=== PATIENT | female | born 1985 | race Caucasian/White ===

== ENCOUNTER → 2018-11-16 15:44 | Outpatient (CLI) | payer OTHER, SELFPAY ==
[2018-11-16 15:53] LABS: Bacteria Urine None Seen; RBC Urine None Seen (0-5/HPF)
[2018-11-16 16:40] LABS: Add Manual Diff / Slide Review NO; Basophils Percent Auto 0.8 % (0-2); Eosinophils Percent Auto 1.8 % (2-4); Hematocrit 39.8 % (36-46); Hemoglobin 13.8 g/dL (12.0-16.0); Lymphocytes Percent Auto 33.5 % (25-40); Mean Corpuscular HGB Conc 34.6 % (30-36); Mean Corpuscular Hemoglobin 30.4 PG (26-34); Mean Corpuscular Volume 87.9 fL (80-100); Monocytes Percent Auto 7.9 % (3-14); Neutrophils Absolute Auto 3500 /uL (1500-7000); Platelet Count 288 X10^3/uL (150-400); Red Blood Cell Count 4.53 X10^6/uL (4.0-5.2); Red Cell Distribution Width 12.6 % (11.6-14.8); White Blood Cell Count 6.3 X10^3/uL (4.5-11.0)
[2018-11-16 16:50] LABS: Appearance Urine UA CLEAR; Bilirubin Urine UA NEGATIVE (NEGATIVE); Color Urine UA YELLOW; Glucose Urine UA NEGATIVE (Negative); Ketones Urine UA NEGATIVE (NEGATIVE); Leukocyte Esterase Urine UA NEGATIVE (NEGATIVE); Nitrite Urine UA NEGATIVE (Negative); Occult Blood Urine UA NEGATIVE (Negative); Protein Urine UA NEGATIVE (Negative); Urobilinogen Urine UA 0.2 E.U./dL (0.2); pH Urine UA 7.5 (4.5-8.0)
[2018-11-16 16:55] LABS: Alanine Aminotransferase 53 IU/L (9-52); Albumin 4.7 g/dL (3.5-5.0); Albumin Globulin Ratio 1.5 (1.0-2.8); Alkaline Phosphatase 49 U/L (38-126); Aspartate Aminotransferase 59 IU/L (14-36); BUN Creatinine Ratio 13.8 (6-22); Bilirubin Total 0.9 mg/dL (0.2-1.3); Blood Urea Nitrogen 11 mg/dL (7-17); Calcium 9.5 mg/dL (8.4-10.2); Carbon Dioxide 29 mmol/L (22-32); Chloride 100 mmol/L (98-107); Estimated Glomerular Filt Rate > 60.0 mL/min (>60); Globulin 3.1 g/dL (1.7-4.1); Glucose 84 mg/dL (70-100); HEMOLYSIS < 15 (0-50); Potassium 3.4 mmol/L (3.4-5.1); Sodium 141 mmol/L (137-145); Total Protein 7.8 g/dL (6.3-8.2)
[2018-11-16 17:05] LABS: Culture Indicated Urine Cult Not Indicated; Squamous Epithelial Cell Urine 0-1 /HPF; WBC Urine 0-1/HPF (0-5/HPF)
[2018-11-16 17:26] LABS: TSH w/ Reflex to FT4 1.24 uIU/mL (0.47-4.68)
== END ==
PROVIDERS: Family Provider Family Medicine; PCP Family Medicine; Visit Provider Family Medicine
DX: M32.8 Other forms of systemic lupus erythematosus (principal)
CPT/HCPCS: 36415; 80053; 81001; 84443; 85025

== ENCOUNTER → 2019-08-20 10:40 | Outpatient (CLI) | payer OTHER, SELFPAY ==
--- NOTE | 2019-08-20 | DI.MG.S_ITS ---
BILATERAL DIGITAL SCREENING MAMMOGRAM 3D/2D WITH CAD: 08/20/2019 CLINICAL: Routine screening. Family history of breast cancer. Comparison is made to exams dated: 12/29/2017 mammogram, 03/30/2013, and 09/28/2012 mammogram - [facility]. The tissue of both breasts is heterogeneously dense. This may lower the sensitivity of mammography. Current study was also evaluated with a Computer Aided Detection (CAD) system. There is an oval equal density global asymmetry with an indistinct margin in the left breast at 1 o'clock posterior depth. No other significant masses, calcifications, or other findings are seen in either breast. IMPRESSION: INCOMPLETE: NEEDS ADDITIONAL IMAGING EVALUATION The oval equal density global asymmetry in the left breast is indeterminate. Mediolateral and spot compression views as well as additional views with possible ultrasound are recommended. This exam was interpreted at Station ID: [id number]. NOTE: For mammograms, a report in lay terms will be sent to the patient. Approximately 15% of breast malignancies will not be visualized mammographically. In the management of a palpable breast mass, a negative mammogram must not discourage biopsy of a clinically suspicious lesion. Electronically Signed By: Kishan cisneros/elaine:08/23/2019 16:25:43 letter sent: Additional Imaging Needed ACR BI-RADS Category 0: Incomplete 3340F
== END ==
PROVIDERS: PCP Family Medicine; Visit Provider Family Medicine
DX: Z12.31 Encounter for screening mammogram for malignant neoplasm of breast (principal); Z80.3 Family history of malignant neoplasm of breast
CPT/HCPCS: 77063; 77067

== ENCOUNTER → 2019-09-20 10:05 | Outpatient (CLI) | payer OTHER, SELFPAY ==
--- NOTE | 2019-09-20 | DI.MG.S_ITS ---
UNILATERAL LEFT DIGITAL DIAGNOSTIC MAMMOGRAM 3D/2D WITH ADDITIONAL VIEWS: 09/20/2019 CLINICAL: Additional evaluation requested from prior study. Comparison is made to exams dated: 08/20/2019 mammogram, 12/29/2017 mammogram, and 09/28/2012 mammogram - [facility]. The tissue of left breast is heterogeneously dense. This may lower the sensitivity of mammography. Previously identified oval equal density global asymmetry with an indistinct margin (described as being in the left breast at 1 o'clock posterior depth on comparison screening mammograms of 08/20/19) persists with additional views. The asymmetry appears less prominent with spot compression LCC views but persists on true lateral L LM views. IMPRESSION: INCOMPLETE: NEEDS ADDITIONAL IMAGING EVALUATION Previously identified oval equal density global asymmetry with an indistinct margin (described as being in the left breast at 1 o'clock posterior depth on comparison screening mammograms of 08/20/19) persists with additional views. The asymmetry appears less prominent with spot compression LCC views but persists on true lateral L LM views. A targeted ultrasound is recommended for further evaluation, and will be performed immediately following this exam. This exam was interpreted at Station ID: [id number]. NOTE: For mammograms, a report in lay terms will be sent to the patient. Approximately 15% of breast malignancies will not be visualized mammographically. In the management of a palpable breast mass, a negative mammogram must not discourage biopsy of a clinically suspicious lesion. Electronically Signed By: Chris Hill M.D. ecl/:09/20/2019 10:44:11 ACR BI-RADS Category 0: Incomplete 3340F
--- NOTE | 2019-09-20 10:06 | DI.US.S_ITS ---
LIMITED ULTRASOUND OF LEFT BREAST: 09/20/2019 CLINICAL: Patient returns today to evaluate an asymmetry in the left breast. Comparison is made to exams dated: 09/20/2019 mammogram, 08/20/2019 mammogram, 12/29/2017 mammogram, 03/30/2013, and 10/15/2012 mammogram - [facility]. Color flow ultrasound of the left breast upper outer quadrant was performed. Mayes scale images of the real-time examination were reviewed. Targeted ultrasound of the upper outer left breast demonstrates dense echogenic fibroglandular tissue with prominent internal lobules of fat, located in the superior lateral left breast 1-2 o'clock psoition 4 cm from the nipple. No other underlying discrete breast mass or abnormality is identified. IMPRESSION: PROBABLY BENIGN Dense fibroglandular tissue without further ultrasound correlate for the asymmetry of the upper outer left breast seen on screening and diagnostic mammography. A follow-up mammogram and possible ultrasound in 6 months is recommended to demonstrate stability. The patient is advised to monitor her breasts and to return sooner for re-evaluation should she feel anything grow or change. This exam was interpreted at Station ID: [id number]. Electronically Signed By: Chris Hill M.D. ecl/:09/20/2019 11:07:07 letter sent: Followup Recommended Ultrasound BI-RADS: 3 Probably benign
== END ==
PROVIDERS: PCP Family Medicine; Visit Provider Family Medicine
DX: R92.8 Other abnormal and inconclusive findings on diagnostic imaging of breast (principal); N64.89 Other specified disorders of breast
CPT/HCPCS: 76642; 77065; G0279

== ENCOUNTER → 2020-07-13 09:24 | Outpatient (CLI) | payer OTHER, SELFPAY ==
--- NOTE | 2020-07-13 09:38 | DI.MG.S_ITS ---
Patient Name: KHUSHBU CUNHA date: 1985 Sex: F Attending Physician: Jerrell Indications: Date: 07/13/2020 09:32 At the request of: BRETT BRENNAN Procedure: MM diagnostic mammo BI BILATERAL DIGITAL DIAGNOSTIC MAMMOGRAM 3D/2D SHORT-TERM FOLLOW-UP: 07/13/2020 CLINICAL: Patient returns for a 6 month follow up of the left breast, due for bilateral exam. Comparison is made to exams dated: 09/20/2019 mammogram, 08/20/2019 mammogram, and 12/29/2017 mammogram - [facility]. The tissue of both breasts is heterogeneously dense. This may lower the sensitivity of mammography. There is an oval equal density global asymmetry with an indistinct margin in the left breast at 1 o'clock posterior depth. This is increased in size. No other significant masses, calcifications, or other findings are seen in either breast. IMPRESSION: INCOMPLETE: NEEDS ADDITIONAL IMAGING EVALUATION The oval equal density global asymmetry in the left breast is indeterminate. An ultrasound is recommended. This exam was interpreted at Station ID: [id number]. NOTE: For mammograms, a report in lay terms will be sent to the patient. Approximately 15% of breast malignancies will not be visualized mammographically. In the management of a palpable breast mass, a negative mammogram must not discourage biopsy of a clinically suspicious lesion. Electronically Signed By: Kishan cisneros/adalbertorad:07/13/2020 09:53:44 Continued Report - Page 2 of 2 Patient Name: KHUSHBU CUNHA date: 1985 Sex: F Attending Physician: Jerrell Indications: Date: 07/13/2020 09:32 At the request of: BRETT BRENNAN Procedure: MM diagnostic mammo BI ACR BI-RADS Category 0: Incomplete 3340F
--- NOTE | 2020-07-13 09:57 | DI.US.S_ITS ---
Patient Name: KHUSHBU CUNHA date: 1985 Sex: F Attending Physician: Jerrell Indications: Date: 07/13/2020 09:55 At the request of: BRETT BRENNAN Procedure: US breast LT limited LIMITED ULTRASOUND OF LEFT BREAST: 07/13/2020 CLINICAL: Patient returns today to evaluate asymmetry in left breast. Comparison is made to exams dated: 07/13/2020 mammogram, 09/20/2019 ultrasound, 09/20/2019 mammogram, and 08/20/2019 mammogram - [facility]. Real-time ultrasound of the left breast upper outer quadrant was performed on the area of interest. No discrete cystic or solid mass lesion identified in the area of the enlarging global asymmetry on mammography. IMPRESSION: INCOMPLETE: NEEDS ADDITIONAL IMAGING EVALUATION There is no abnormality seen in the left breast to correspond with the mammography finding in the upper outer quadrant, however, breast MRI is recommended given the change compared to prior studies and patient's strong family history. The findings were reviewed with the patient at the conclusion of the study by the laboratory technologist. This exam was interpreted at Station ID: [id number]. Electronically Signed By: Kishan Edward M.D. ddp/:07/13/2020 10:07:44 letter sent: Need MRI Ultrasound BI-RADS: 0 Indeterminate
[2020-07-13 11:38] LABS: Add Manual Diff / Slide Review NO; Basophils Absolute Auto 0 /uL (0-100); Basophils Percent Auto 0.8 % (0-2); Eosinophils Absolute Auto 100 /uL (0-450); Eosinophils Percent Auto 1.4 % (2-4); Hematocrit 39.3 % (36-46); Hemoglobin 13.4 g/dL (12.0-16.0); Lymphocytes Absolute Auto 2100 /uL (1100-4500); Mean Corpuscular HGB Conc 34.1 % (30-36); Mean Corpuscular Hemoglobin 30.6 PG (26-34); Mean Corpuscular Volume 89.5 fL (80-100); Monocytes Absolute Auto 500 /uL (0-900); Monocytes Percent Auto 9.3 % (3-14); Neutrophils Absolute Auto 2800 /uL (1500-7000); Neutrophils Percent Auto 50.5 % (50-75); Platelet Count 237 X10^3/uL (150-400); Red Blood Cell Count 4.39 X10^6/uL (4.0-5.2); Red Cell Distribution Width 12.3 % (11.6-14.8); White Blood Cell Count 5.6 X10^3/uL (4.5-11.0)
[2020-07-13 12:12] LABS: Alanine Aminotransferase 24 IU/L (<35); Albumin 4.8 g/dL (3.5-5.0); Albumin Globulin Ratio 1.7 (1.0-2.8); Alkaline Phosphatase 64 U/L (38-126); Aspartate Aminotransferase 27 IU/L (14-36); BUN Creatinine Ratio 8.2 (6-22); Bilirubin Total 1.2 mg/dL (0.2-1.3); Blood Urea Nitrogen 8 mg/dL (7-17); Calcium 9.6 mg/dL (8.4-10.2); Carbon Dioxide 26 mmol/L (22-32); Chloride 103 mmol/L (98-107); Cholesterol 154 mg/dL (140-199); Estimated Glomerular Filt Rate > 60.0 mL/min (>60); Globulin 2.8 g/dL (1.7-4.1); Glucose 79 mg/dL (70-100); HDL Cholesterol 69 mg/dL (40-60); HEMOLYSIS < 15 (0-50); LDL Cholesterol Calculated 72 mg/dL (<100); Potassium 3.8 mmol/L (3.4-5.1); Sodium 138 mmol/L (137-145); Total Protein 7.6 g/dL (6.3-8.2); Triglycerides 63 mg/dL (35-150)
[2020-07-13 12:26] LABS: TSH w/ Reflex to FT4 0.92 uIU/mL (0.47-4.68)
== END ==
PROVIDERS: PCP Family Medicine; Referring Provider Family Medicine; Visit Provider Family Medicine
DX: R92.8 Other abnormal and inconclusive findings on diagnostic imaging of breast (principal); M32.8 Other forms of systemic lupus erythematosus; N64.89 Other specified disorders of breast; Z80.3 Family history of malignant neoplasm of breast
CPT/HCPCS: 36415; 76642; 77066; 80053; 80061; 84443; 85025; G0279

== ENCOUNTER → 2020-08-01 12:56 | Outpatient (CLI) | payer OTHER, SELFPAY ==
--- NOTE | 2020-08-01 12:57 | DI.MRI.S_ITS ---
BREAST MRI OF BOTH BREASTS: 08/01/2020 CLINICAL: Abnormal Mammogram. TECHNIQUE: The patient was placed prone in a dedicated breast imaging coil. Precontrast axial STIR and 3D FLASH without fat saturation sequences were obtained. Both before and after bolus injection of contrast, sequential 1-minute axial 3D FLASH with fat saturation sequences for 3 time points, with subtraction images and maximum intensity projections (MIP's) generated. Delayed sagittal FLASH images with fat saturation were also obtained. Computer-aided detection, including computer algorithm analysis of MRI image data for lesion detection and characterization, pharmacokinetic analysis, with further physician review for interpretation, was performed. COMPARISON: [facility], US, BREAST UNILATERAL LIMITED, 12/29/2017, 13:32. [facility], BILATERAL DIAGNOSTIC MAMMOGRAM, 12/29/2017, 13:09. [facility], MM SCREENING MAMMO BI, 08/20/2019, 11:10. [facility], MM SPECIAL VIEW LT, 09/20/2019, 10:20. [facility], MM DIAGNOSTIC MAMMO BI, 07/13/2020, 9:38. [facility], US BREAST LT LIMITED, 07/13/2020, 9:57. [facility], US BREAST LT LIMITED, 09/20/2019, 10:45. [facility], , BILATERAL BREAST W FINDINGS: Image quality: Excellent. There is mild background parenchymal enhancement. There is heterogeneous fibroglandular breast tissue in the bilateral breast. Right breast: There is no mass, non-mass enhancement, or architectural distortion identified in the right breast. No skin or nipple abnormalities. Left breast: There is no mass, non-mass enhancement, or architecture distortion identified in the left breast. No skin or nipple abnormalities. There is redemonstration of global asymmetry of fibroglandular tissue in the posterior depth of the upper-outer left breast correlating with area of prior mammographic and sonographic evaluation. No associated architectural distortion or suspicious enhancement. Miscellaneous: No axillary or internal mammary chain adenopathy identified on either side. Visualized portions of the chest and upper abdomen are unremarkable. IMPRESSION: NEGATIVE No MRI evidence for malignancy in either breast. Specifically, no suspicious abnormalities identified in the posterior depth of the upper-outer quadrant of the left breast correlating with previously evaluated global asymmetry. This likely represents asymmetric distribution of dense fibroglandular breast tissue. Recommend continued annual screening mammograms with consideration of annual screening breast MRI to be offset by approximately 6 months. COMMENT: The imaging literature indicates that a negative contrast breast MRI examination has a high sensitivity and a moderate specificity for detecting and excluding invasive carcinomas to a detection threshold of 3-5 mm; nonetheless, appropriate clinical and mammographic follow-up are recommended. MRI is not sensitive for detecting DCIS (ductal carcinoma in situ) and may not detect large invasive neoplasms that show only minimal enhancement such as mucinous carcinoma. If there are suspicious calcifications or clinically worrisome palpable masses, then biopsy should still be considered. Invasive neoplasms can be hidden by co-existent and benign enhancement caused by mastitis, hormone therapy effects, radiation therapy, , and recent biopsy or surgery. False positive examinations can occur in a number of circumstances, including breasts that have recently been subject to invasive procedures and those that contain atypical ductal hyperplasia, hormonally stimulated glandular tissue, fat necrosis, or radial scars. A 1 year screening mammogram and a breast MRI is recommended. This exam was interpreted at Station ID: [id number]. Electronically Signed By: Gus Cho M.D. at/:08/01/2020 17:32:05 letter sent: Normal Exam ACR BI-RADS Category 1: Negative 3341F
== END ==
PROVIDERS: PCP Family Medicine; Referring Provider Family Medicine; Visit Provider Family Medicine
DX: R92.8 Other abnormal and inconclusive findings on diagnostic imaging of breast (principal); R92.2 Inconclusive mammogram; N64.89 Other specified disorders of breast; Z80.3 Family history of malignant neoplasm of breast
CPT/HCPCS: 77049; A9579

== ENCOUNTER 2021-03-29 17:34 | Emergency (ER) | payer OTHER, SELFPAY ==
[2021-03-29 17:38] VITALS: BP 151/78; PULSE 75; RESP 16; TEMP 36.6; O2SAT 100; BMI 21.5
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
[2021-03-29] MEDS: BUPIVACAINE 0.5% W/ EPI (PF) 30 ML VIAL 5 ML SUBCUT (19:03)
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
[2021-03-29 20:01] VITALS: BP 140/79; PULSE 69; RESP 18; O2SAT 100
--- NOTE | 2021-03-29 20:22 | PC.NURSE ---
abx prescription did not go through to [facility]. pharmacist called and was given verbal report.
== END 2021-03-29 20:01 | disposition home or self-care (01) ==
PROVIDERS: Emergency Provider Emergency Medicine; PCP Family Medicine
DX: S02.5XXB Fracture of tooth (traumatic), initial encounter for open fracture (principal); W19.XXXA Unspecified fall, initial encounter
CPT/HCPCS: 64450; 70486; 99283; 99284

== ENCOUNTER → 2022-02-25 09:29 | Outpatient (CLI) | payer OTHER, SELFPAY ==
[2022-02-25 11:01] LABS: Add Manual Diff / Slide Review NO; Basophils Absolute Auto 100 /uL (0-100); Eosinophils Absolute Auto 100 /uL (0-450); Eosinophils Percent Auto 1.6 % (2-4); Hematocrit 38.9 % (36-46); Hemoglobin 13.5 g/dL (12.0-16.0); Lymphocytes Absolute Auto 1900 /uL (1100-4500); Lymphocytes Percent Auto 30.3 % (25-40); Mean Corpuscular HGB Conc 34.7 % (30-36); Mean Corpuscular Hemoglobin 31.3 PG (26-34); Mean Corpuscular Volume 90.2 fL (80-100); Monocytes Absolute Auto 400 /uL (0-900); Monocytes Percent Auto 7.1 % (3-14); Neutrophils Absolute Auto 3700 /uL (1500-7000); Platelet Count 229 X10^3/uL (150-400); Red Blood Cell Count 4.32 X10^6/uL (4.0-5.2); Red Cell Distribution Width 12.8 % (11.6-14.8); White Blood Cell Count 6.1 X10^3/uL (4.5-11.0)
[2022-02-25 12:18] LABS: Alanine Aminotransferase 21 IU/L (<35); Albumin 4.8 g/dL (3.5-5.0); Albumin Globulin Ratio 1.8 (1.0-2.8); Alkaline Phosphatase 53 U/L (38-126); Aspartate Aminotransferase 39 IU/L (14-36); BUN Creatinine Ratio 8.3 (6-22); Bilirubin Total 1.2 mg/dL (0.2-1.3); Blood Urea Nitrogen 7 mg/dL (7-17); Calcium 9.2 mg/dL (8.4-10.2); Carbon Dioxide 27 mmol/L (22-32); Chloride 103 mmol/L (98-107); Estimated Glomerular Filt Rate > 60 mL/min (>60); Globulin 2.6 g/dL (1.7-4.1); Glucose 80 mg/dL (70-100); HEMOLYSIS < 15 (0-50); Potassium 3.6 mmol/L (3.4-5.1); Sodium 140 mmol/L (137-145); Total Protein 7.4 g/dL (6.3-8.2)
[2022-02-25 12:49] LABS: Thyroid Stimulating Hormone 0.686 uIU/mL (0.47-4.68)
== END ==
PROVIDERS: PCP Family Medicine; Referring Provider Physician Assistant; Visit Provider Physician Assistant
DX: M32.8 Other forms of systemic lupus erythematosus (principal); Z79.899 Other long term (current) drug therapy; R23.2 Flushing
CPT/HCPCS: 36415; 80053; 84443; 85025

== ENCOUNTER → 2022-03-06 09:14 | Outpatient (CLI) | payer OTHER, SELFPAY ==
--- NOTE | 2022-03-06 | DI.MG.S_ITS ---
BILATERAL DIGITAL SCREENING MAMMOGRAM 3D/2D WITH CAD: 03/06/2022 CLINICAL: Routine screening. Family history of breast cancer. Comparison is made to exams dated: 08/01/2020 breast MRI, 07/13/2020 ultrasound, 07/13/2020 mammogram, 08/20/2019 mammogram, and 12/29/2017 mammogram - [facility]. The tissue of both breasts is heterogeneously dense. This may lower the sensitivity of mammography. Current study was also evaluated with a Computer Aided Detection (CAD) system. No significant masses, calcifications, or other findings are seen in either breast. There has been no significant interval change. IMPRESSION: NEGATIVE There is no mammographic evidence of malignancy. A 1 year screening mammogram is recommended. This exam was interpreted at Station ID: [id number]. NOTE: For mammograms, a report in lay terms will be sent to the patient. Approximately 15% of breast malignancies will not be visualized mammographically. In the management of a palpable breast mass, a negative mammogram must not discourage biopsy of a clinically suspicious lesion. Electronically Signed By: Gus kong/elaine:03/06/2022 09:35:53 letter sent: Normal Exam ACR BI-RADS Category 1: Negative 3341F
== END ==
PROVIDERS: PCP Family Medicine; Referring Provider Family Medicine; Visit Provider Family Medicine
DX: Z12.31 Encounter for screening mammogram for malignant neoplasm of breast (principal); Z80.3 Family history of malignant neoplasm of breast
CPT/HCPCS: 77063; 77067

== ENCOUNTER 2023-01-07 12:19 | Emergency (ER) | payer OTHER, SELFPAY ==
[2023-01-07 12:36] VITALS: BP 139/65; PULSE 68; RESP 16; TEMP 37; O2SAT 100; BMI 22.9
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
--- NOTE | 2023-01-07 13:32 | ED.UPPEXIN ---
HPI - Extremity Injury (Upper) General Chief Complaint: Extremity Injury, Upper Stated Complaint: cut lt hand with knife Time Seen by Provider: 01/07/23 13:19 Source: patient Mode of arrival: Ambulatory History of Present Illness HPI narrative: This is a 37-year-old female presents emergency department due to puncture in her left hand after attempting to slicer avocado. Unsure of tetanus is up-to-date. She states she tried to stab the avocado but accidently stabbed left hand at the palm of her just proximal to the MCP joint. She reports mild pain but is primarily concerned with the fact that she is unable to flex her left 2nd digit. Related Data Home Medications Medication Instructions Recorded Confirmed ascorbate calcium (vitamin C) 500 500 mg PO DAILY 11/16/18 02/25/22 mg tablet biotin 2,500 mcg capsule 2,500 mcg PO DAILY 11/16/18 02/25/22 Previous Rx's Medication Instructions Recorded hydroxychloroquine 200 mg tablet 200 mg PO DAILY #90 tabs 02/25/22 Allergies Allergy/AdvReac Type Severity Reaction Status Date / Time No Known Drug Allergies Allergy Verified 01/07/23 12:34 Review of Systems Review of Systems Narrative: GENERAL: Denies chills, fatigue, malaise, fever, sweats. HEENT: Denies sinus pain, ear pain, sore throat, difficulty swallowing, dizziness. RESPIRATORY: Denies dyspnea, cough, wheezing, hemoptysis, sputum. CARDIOVASCULAR: Denies chest pain, palpitations, orthopnea, edema, GASTROINTESTINAL: Denies nausea, vomiting, abdominal pain, diarrhea, constipation, melena. : Denies dysuria, frequency, incontinence, hematuria, urinary retention. MUSCULOSKELETAL: Left hand pain SKIN: Left palm laceration NEUROLOGIC: Denies weakness, headache, numbness, change in speech, confusion, seizures, incoordination. PSYCHIATRIC: No concerning psychosocial issues. 12 point review of systems is negative except for those stated above Patient History Social History marital status: Smoking Status: Never smoker alcohol intake: current (ON OCCASION ) substance use type: does not use Smoking Status: Never smoker Substance Use Type: does not use Exam Narrative Exam Narrative: GENERAL: Well-developed patient, in mild distress. HEAD: Atraumatic. Normocephalic. EYES: Pupils equal round and reactive. Extraocular motions intact. No scleral icterus. No injection or drainage. ENT: Nose without bleeding, purulent drainage. Throat without erythema, tonsillar hypertrophy or exudate. Airway patent. NECK: Trachea midline. Non tender EXTREMITIES: Able flex at the MCP joint but unable to flex at the, PIP, or dip joint of the left 2nd digit. Intact sensation and vascularly intact distally to the wound. Full ability to extend at all joints of the left 2nd digit. No other changes in range of motion of the other digits. NEURO: AOx3. SKIN: 1 cm laceration to the palmar aspect of the MCP joint of the left 2nd digit Initial Vital Signs Initial Vital Signs: Vital Signs Temperature 98.6 F 01/07/23 12:36 Pulse Rate 68 01/07/23 12:36 Respiratory Rate 16 01/07/23 12:36 Blood Pressure 139/65 01/07/23 12:36 Pulse Oximetry 100 01/07/23 12:36 Oxygen Delivery Method Room Air 01/07/23 12:36 Procedures Laceration Repair Laceration 1: Time of procedure: 15:30 Site: other (Left palm) Size (cm): 1 Description: linear Depth: simple, single layer Local Anesthetic: lidocaine 2% (4cc) Pre-repair: irrigated extensively and cleansed with chlorhexadine Skin layer closed with: nylon Skin layer suture size: 5-0 Number of sutures: 3 Technique: simple, interrupted Course Orders Ordered: Discontinued Medications Hydrocodone Bitart/Acetaminophen (Hydrocodone/Acet 10/325 Tablet) 1 tab PO NOW ONE Stop: 01/07/23 13:34 Last Admin: 01/07/23 13:40 Dose: 1 tab Documented By: NAYELI Diphtheria/Tetanus/Acell Pertussis (Tet,Diph,Pertuss(Acell),Vac/Pf 0.5 Ml Syringe) 0.5 ml IM .ONCE ONE Stop: 01/07/23 13:24 Last Admin: 01/07/23 13:40 Dose: 0.5 ml Documented By: NAYELI Cefazolin Sodium 1 gm/ Sodium (Chloride) 100 mls @ 200 mls/hr IV NOW ONE Stop: 01/07/23 15:01 Last Admin: 01/07/23 15:01 Dose: Not Given Documented By: SHEREE Lidocaine HCl (Lidocaine 1% 20 Ml) 20 ml INJ INTRA-OP ONE Stop: 01/07/23 13:55 Last Admin: 01/07/23 14:59 Dose: Not Given Documented By: SHEREE Lidocaine HCl (Lidocaine 2% Inj Mdv 50ml) 1 mg SUBCUT NOW ONE Stop: 01/07/23 14:31 Last Admin: 01/07/23 14:59 Dose: Not Given Documented By: SHEREE Lidocaine HCl (Lidocaine 2% Inj Sdv 5ml) 5 ml INJ INTRA-OP ONE Stop: 01/07/23 14:55 Last Admin: 01/07/23 14:57 Dose: 5 ml Documented By: SHEREE Vital Signs Vital signs: Vital Signs - 8 hr 01/07/23 12:36 Temperature 98.6 F Pulse Rate 68 Respiratory Rate 16 Blood Pressure 139/65 Pulse Oximetry 100 Oxygen Delivery Method Room Air MDM - Extremity Injury (Upper) Imaging Data Extremity x-ray #1: Radiologist's Impression: [address] [id number] ReportAddendum Patient: Andreina Argueta [facility]#: [id number]: 1985Acct:[id number]/Sex: 37 / FDate of Service: 01/07/23Loc: EDAccession Number: [id number] Procedure: XR hand LT min 3V Ordering Provider: Florian Vargas MD ADDENDUMThis report includes an Addendum and supersedes previous reports for this exam. PROCEDURE: XR HAND LT MIN 3V INDICATIONS: injury TECHNIQUE: 3 views of the hand(s) acquired. COMPARISON: None. FINDINGS: Bones: No fractures or dislocations. Carpal bones are normally aligned. No suspicious bony lesions. Soft tissues: No suspicious soft tissue calcifications. IMPRESSION: Occult in Dictated by: Juliana Sorensen M.D. on 01/07/2023 at 14:21 Approved by: Juliana Sorensen M.D. on 01/07/2023 at 14:21 ADDENDUM: Impression: No visualized acute fracture or dislocation. However, if clinical concern and/or pain persist, short interval imaging followup in 7-10 days is recommended, as occult injury cannot be definitively excluded. Dictated by: Juliana Sorensen M.D. on 01/07/2023 at 14:42 Approved by: Juliana Sorensen M.D. on 01/07/2023 at 14:42 Addendum Dictated By:Juliana Sorensen MDAddendum Signed By:Addendum Cosigned By:DD/ TD/TT: 01/07/2312/01/1441 PROCEDURE: XR HAND LT MIN 3V INDICATIONS: injury TECHNIQUE: 3 views of the hand(s) acquired. COMPARISON: None. FINDINGS: Bones: No fractures or dislocations. Carpal bones are normally aligned. No suspicious bony lesions. Soft tissues: No suspicious soft tissue calcifications. IMPRESSION: Occult in Dictated by: Juliana Sorensen M.D. on 01/07/2023 at 14:21 Approved by: Juliana Sorensen M.D. on 01/07/2023 at 14:21 MDM Narrative Medical decision making narrative: MDM * differential diagnosis includes but not limited to soft tissue laceration, tendon injury, fracture * Prior records reviewed: Patient has not been here for similar complaints in the past * My lab interpretation: None obtained * My imgaing interpretation: No evidence of acute fracture on x-ray * Clinical Decision Rules/Scores evaluated: None * Independent discussions with: None ED Course: This is a 37-year-old female presents emergency department due to a left palm laceration. Patient is unable to flex at her PIP or the IP joints of the left 2nd digit but able to flex at the MCP joint. Full extension. Discussed this with on-call orthopedist, Dr. Rosales who recommended a finger splint and follow-up in their office. The laceration was closed without complications. X-ray shows no evidence of any fractures. Tetanus updated. Shared Decision Making: Discussed plan with patient who is comfortable with plan Social Considerations: None Disposition: Discharged to home Discharge Plan Departure Patient Disposition: Home Clinical Impression: Laceration Instructions: DI for Suture Removal Activity Restrictions/Additional Instructions: Thank you for coming to the [facility] Emergency Department today. As discussed you not have a fracture in your hand but we would strongly recommend you follow-up with Dr. Rosales's office further evaluation to rule out possible tendon injury. If you begin to notice any signs of infection please return for possible antibiotics. You may return here or go to your primary care provider or the orthopedist office for suture removal. I hope you feel better soon. Prescriptions: No Action hydroxychloroquine 200 mg tablet 200 mg PO DAILY Qty: 90 3RF ascorbate calcium (vitamin C) 500 mg tablet 500 mg PO DAILY biotin 2,500 mcg capsule 2,500 mcg PO DAILY Referrals: Mihai Allan MD [Primary Care Provider] - Endy Rosales MD [Physician] - (Deep hand laceration, possible tendon injury, XR negative for fx, thank you! ) Stand Alone Forms: Patient Portal/API
[2023-01-07] MEDS: TET,DIPH,PERTUSS(ACELL),VAC/PF 0.5 ML SYRINGE IM (13:40)
[2023-01-07] MEDS: HYDROCODONE/ACET 10/325 TABLET 1 TAB PO (13:40)
[2023-01-07] MEDS: LIDOCAINE 2% INJ SDV 5ML 5 ML INJ (14:57)
== END 2023-01-07 16:07 | disposition home or self-care (01) ==
PROVIDERS: Emergency Provider Physician Assistant Medical; PCP Family Medicine
DX: S61.412A Laceration without foreign body of left hand, initial encounter (principal); W26.0XXA Contact with knife, initial encounter; Z23 Encounter for immunization
CPT/HCPCS: 12001; 73130; 90471; 99283; 99284; 90715

== ENCOUNTER → 2024-04-12 10:49 | Outpatient (CLI) | payer OTHER, SELFPAY ==
--- NOTE | 2024-04-12 | DI.MG.S_ITS ---
BILATERAL DIGITAL SCREENING MAMMOGRAM 3D/2D WITH CAD: 04/12/2024 CLINICAL: Routine screening. Family history of breast cancer. Comparison is made to exams dated: 03/06/2022 mammogram, 08/01/2020 breast MRI, and 07/13/2020 mammogram - [facility]. Both breasts are heterogeneously dense, which may obscure small masses (category c / 51-75% glandular tissue). Current study was also evaluated with a Computer Aided Detection (CAD) system. There is a possible new oval asymmetry in the left breast anterior depth central to the nipple seen on the craniocaudal view only. No other significant masses, calcifications, or other findings are seen in either breast. IMPRESSION: INCOMPLETE: NEEDS ADDITIONAL IMAGING EVALUATION The possible new oval asymmetry in the left breast is indeterminate. Additional views with possible ultrasound are recommended. Based on Tyrer-Cuzick model (a risk assessment model), the patient's lifetime risk is 20.0% and her 10 year risk is 2.8%. If a patient has an elevated risk, a more comprehensive evaluation should be considered and/or a referral to a genetic counselor. The [employer], [employer], and NCCN Guidelines advise the consideration of Breast MRI as an adjunct to screening mammography in patients whose Lifetime risk to develop breast cancer is 20% or higher. This exam was interpreted at Station ID: [id number]. NOTE: For mammograms, a report in lay terms will be sent to the patient. Approximately 15% of breast malignancies will not be visualized mammographically. In the management of a palpable breast mass, a negative mammogram must not discourage biopsy of a clinically suspicious lesion. Electronically Signed By: Gus Cho M.D. aty/:04/12/2024 18:05:20 letter sent: Additional Imaging Needed ACR BI-RADS Category 0: Incomplete 3340F
--- NOTE | 2024-04-12 10:51 | DI.US.S_ITS ---
PROCEDURE: US PELVIC COMPLETE INDICATIONS: Irregular menses; bloating; cramping Hx of ovarian cyst TECHNIQUE: Real-time scanning was performed of the pelvic organs, with image documentation. Additional endovaginal scanning was necessary due to incomplete visualization of the adnexal and endometrial structures by transabdominal scanning. COMPARISON: None. FINDINGS: Uterus: Uterus is anteverted and normal in size at 9.5 x 3.9 x 5.3 cm. The myometrium is homogeneous. The endometrium measures 2.2 mm combined thickness. Ovaries: The right ovary measures 3.5 x 2.2 x 1.8 cm, with a calculated ovarian volume of 7.3 cc. The left ovary measures 2.2 x 2.3 x 1.9 cm, with a calculated ovarian volume of 4.9 cc. The ovaries have a normal sonographic appearance. Less than 12 follicles can be seen in each ovary. There is a dominant cyst in the right ovary. No adnexal masses are seen. Other: No pathologic free abdominal or pelvic fluid. IMPRESSION: 1. A cause for irregular menses is not identified. 2. A dominant follicle in the right ovary. Otherwise normal appearance of ovaries. We strive to produce accurate, complete, and clear reports of imaging services. To assist us in improving patient care, this report was composed using standard report templates and voice recognition software. Therefore, it may contain abnormal punctuation, insertions and/or omissions. Occasional wrong-word or sound-alike substitutions may occur. Though we review the report and make efforts to correct it, we do recommend that the report be read carefully in proper context to recognize any text inaccuracies. Dictated by: Alton Lozoya M.D. on 04/12/2024 at 14:01 Approved by: Alton Lozoya M.D. on 04/12/2024 at 14:08
== END ==
LOC: US 10:50
PROVIDERS: PCP Family Medicine; Referring Provider Family Medicine; Visit Provider Family Medicine
DX: N92.6 Irregular menstruation, unspecified (principal); Z12.31 Encounter for screening mammogram for malignant neoplasm of breast; Z80.3 Family history of malignant neoplasm of breast; R92.333 Mammographic heterogeneous density, bilateral breasts; R14.0 Abdominal distension (gaseous); R10.2 Pelvic and perineal pain; Z87.42 Personal history of other diseases of the female genital tract
CPT/HCPCS: 76856; 77063; 77067

== ENCOUNTER → 2024-05-02 13:25 | Outpatient (CLI) | payer OTHER, SELFPAY ==
--- NOTE | 2024-05-02 13:26 | DI.US.S_ITS ---
PROCEDURE: US BREAST LT LIMITED COMPARISON: [facility], BREAST LT LIMITED, 07/13/2020, 9:57. INDICATIONS: Abnormal mammogram L breast FINDINGS: IMPRESSION: Dictated by: John Weinberg M.D. on 05/02/2024 at 14:28 Approved by: John Weinberg M.D. on 05/02/2024 at 14:28
--- NOTE | 2024-05-02 13:26 | DI.MG.S_ITS ---
UNILATERAL LEFT DIGITAL DIAGNOSTIC MAMMOGRAM 3D/2D WITH ADDITIONAL VIEWS: 05/02/2024 CLINICAL: Additional evaluation requested from prior study. Comparison is made to exams dated: 04/12/2024 mammogram, 03/06/2022 mammogram, and 07/13/2020 mammogram - [facility]. The left breast is heterogeneously dense, which may obscure small masses (category c / 51-75% glandular tissue). There is an asymmetry in the left breast anterior depth central to the nipple seen on the craniocaudal view only. This is not seen in additional views. No other significant masses or calcifications are seen in the breast. IMPRESSION: INCOMPLETE: NEEDS ADDITIONAL IMAGING EVALUATION The asymmetry in the left breast is indeterminate. An ultrasound is recommended. Based on Tyrer-Cuzick model (a risk assessment model), the patient's lifetime risk is 20.0% and her 10 year risk is 2.8%. If a patient has an elevated risk, a more comprehensive evaluation should be considered and/or a referral to a genetic counselor. The [employer], [employer], and NCCN Guidelines advise the consideration of Breast MRI as an adjunct to screening mammography in patients whose Lifetime risk to develop breast cancer is 20% or higher. This exam was interpreted at Station ID: [id number]. NOTE: For mammograms, a report in lay terms will be sent to the patient. Approximately 15% of breast malignancies will not be visualized mammographically. In the management of a palpable breast mass, a negative mammogram must not discourage biopsy of a clinically suspicious lesion. Electronically Signed By: John flores/elaine:05/02/2024 14:27:45 ACR BI-RADS Category 0: Incomplete 3340F
--- NOTE | 2024-05-02 14:02 | DI.US.S_ITS ---
Patient Name: KHUSHBU CUNHA date: 1985 Sex: F Attending Physician: Jaleel Indications: Date: 05/02/2024 14:28 At the request of: WEN ALEXANDER Procedure: US breast LT limited ULTRASOUND OF LEFT BREAST: 05/02/2024 CLINICAL: Follow up from addtional views. Comparison is made to exams dated: 04/12/2024 mammogram, 03/06/2022 mammogram, and 08/01/2020 breast MRI - [facility]. Color flow and real-time ultrasound of the left breast were performed. No significant abnormalities were seen sonographically in the left breast. Incidental benign dilated ducts are seen. IMPRESSION: NEGATIVE There is no sonographic evidence of malignancy. There is no abnormality seen in the left breast to correspond with the mammography finding which was likely superimposition artifact. Return to annual mammogram screening schedule is recommended. This exam was interpreted at Station ID: [id number]. Electronically Signed By: John Weinberg M.D. lc/:05/02/2024 14:28:43 letter sent: Normal Exam Ultrasound BI-RADS: 1 Negative
== END ==
PROVIDERS: PCP Family Medicine; Referring Provider Family Medicine; Visit Provider Family Medicine
DX: R92.8 Other abnormal and inconclusive findings on diagnostic imaging of breast (principal); N64.89 Other specified disorders of breast; R92.332 Mammographic heterogeneous density, left breast
CPT/HCPCS: 76642; 77065; G0279

== ENCOUNTER → 2025-04-13 | Outpatient (CLI) | payer OTHER, SELFPAY ==
--- NOTE | 2025-04-13 07:51 | DI.MG.S_ITS ---
MM screening mammo BI: 04/13/2025. BI-RADS: 1 CLINICAL: 40-year old female for bilateral screening mammogram. Tyrer-Cuzick lifetime risk of 16.2%. Current reported family history of breast cancer: mother. PRIOR EXAMS 05/02/2024, 04/12/2024, 03/06/2022, 08/01/2020, 07/13/2020, 09/20/2019, 08/20/2019, 12/29/2017, 03/14/2016. MAMMOGRAPHY TECHNIQUE: 2D and 3D (tomosynthesis) digital mammographic views obtained, with additional images as needed for full coverage. Current study was also evaluated with a Computer Aided Detection (CAD) system. DENSITY C. The breasts are heterogeneously dense, which may obscure small masses. MAMMOGRAPHY FINDINGS Bilateral: No suspicious mass, asymmetry, microcalcification, or other abnormality seen. IMPRESSION: * No evidence of malignancy. RECOMMENDATIONS Bilateral * Annual screening mammography. OVERALL ASSESSMENT CATEGORY BI-RADS-1: Negative. The [employer] recommends annual screening mammography beginning at age 40 for women with average risk of breast cancer. ELECTRONICALLY SIGNED: Kacy Lima M.D. on 04/16/2025 at 01:51:39 PM PT Interpreting Station ID: [id number]
== END ==
LOC: MAMMO 07:50
PROVIDERS: PCP Family Medicine; Referring Provider Family Medicine; Visit Provider Family Medicine
DX: Z12.31 Encounter for screening mammogram for malignant neoplasm of breast (principal); Z80.3 Family history of malignant neoplasm of breast; R92.333 Mammographic heterogeneous density, bilateral breasts
CPT/HCPCS: 77063; 77067